=== PATIENT | female | born 1940 | race Caucasian/White ===

== ENCOUNTER 2017-10-21 11:34 | Outpatient (REF) | payer MEDICARE, BC, SELFPAY ==
[2017-10-21 13:46] LABS: ALT 18 U/L (12-78); AST 16 U/L (15-37); Albumin 3.6 g/dL (3.4-5.0); Alkaline Phosphatase 72 U/L (46-116); Anion Gap 7.7 mmol/L (3-11); BUN 21 mg/dL (7-18); Bilirubin, Total 0.7 mg/dL (0.2-1.0); CO2 27.3 mmol/L (21.0-32.0); CREATININE 1.15 mg/dL (0.55-1.02); Calcium 8.9 mg/dL (8.5-10.1); Chloride 101 mmol/L (98-107); Cholesterol 209 mg/dL (50-200); Estimated GFR 45.52 (mL/min/1.73m2); Glucose 86 mg/dL (70-100); HDL Cholesterol 70 mg/dL (40-60); LDL CHOLESTEROL 131 mg/dL (<100); Potassium 4.4 mmol/L (3.5-5.1); Sodium 136 mmol/L (136-145); Total Protein 6.9 g/dL (6.4-8.2); Triglyceride 54 mg/dL (30-150)
[2017-10-24 08:00] LABS: Vitamin D 25 Total 82.4 ng/ml (30-100)
== END 2017-10-21 11:54 ==
LOC: NCHCN 11:34
PROVIDERS: PCP Family Medicine; Visit Provider Family Medicine
DX: R42 Dizziness and giddiness (principal); E55.9 Vitamin D deficiency, unspecified; E78.5 Hyperlipidemia, unspecified
CPT/HCPCS: 80053; 80061; 82306; 83721

== ENCOUNTER 2018-01-27 17:06 | Outpatient (CLI) | payer MEDICARE, BC, SELFPAY ==
--- NOTE | 2018-01-27 09:04 | MERGE_ITS ---
*[facility]* *[facility]* [address] [place] [address] Date of study: 01/27/2018 Transthoracic Echocardiography M-mode, complete 2D, complete spectral Doppler, and color Doppler *STUDY CONCLUSIONS* Summary: 1. Left ventricle: The cavity size was normal. Wall thickness was normal. Systolic function was normal. The estimated ejection fraction was 55-60%. Wall motion was normal; there were no regional wall motion abnormalities. 2. Right ventricle: The cavity size was normal. Systolic function was normal. 3. Aortic valve: Trileaflet; mildly thickened leaflets. Valve mobility was restricted. Transvalvular velocity was increased. There was mild stenosis. There was mild to moderate regurgitation. Peak velocity (S): 2.1m/sec. VTI ratio of LVOT to aortic valve: 0.58. 4. Mitral valve: Mildly calcified annulus. Mildly thickened leaflets. There was mild regurgitation. 5. Inferior vena cava: The vessel was normal in size. The respirophasic diameter changes were in the normal range (greater than or equal to 50%), consistent with normal central venous pressure. *PATIENT PRESENTATION* Height: 160cm ((63in) ) S/D Pressure: 138 / 79 Weight: 60.3kg ((132.7lb) ) BSA: 1.65m^2 Test start time: 09:00 AM. Test stop time: 10:04 AM. PERFORMING Unknown ORDERING Josie Alexander REFERRING Josie Alexander PERFORMING [facility] EXPRESS CLERK Ana Pandya *PROCEDURE DATA* Procedure information: This study was interpreted by [facility]. Pertinent images and digital data are archived for permanent storage and are available for subsequent review. No prior study was available for comparison. Study status: Routine. Transthoracic echocardiography. M-mode, complete 2D, complete spectral Doppler, and color Doppler. A Transthoracic Echocardiogram was performed. Scanning was performed from the parasternal, apical, subcostal, and suprasternal notch acoustic windows. Images were obtained using an PlanZap 2000 cardiac ultrasound machine. Image quality was adequate. Study completion: The patient tolerated the procedure well. There were no complications. History: PMH: Takotsubo Cardiomyopathy. *CARDIAC ANATOMY* Left ventricle: The cavity size was normal. Wall thickness was normal. Systolic function was normal. The estimated ejection fraction was 55-60%. Wall motion was normal; there were no regional wall motion abnormalities. Findings consistent with diastolic dysfunction. There was no evidence of elevated ventricular filling pressure by Doppler parameters. Aortic valve: Trileaflet; mildly thickened leaflets. Valve mobility was restricted. Doppler: Transvalvular velocity was increased. There was mild stenosis. There was mild to moderate regurgitation. VTI ratio of LVOT to aortic valve: 0.58. Valve area (VTI): 1.4cm^2. Indexed valve area (VTI): 0.8cm^2/m^2. Peak velocity ratio of LVOT to aortic valve: 0.54. Valve area (Vmax): 1.3cm^2. Indexed valve area (Vmax): 0.8cm^2/m^2. Mean velocity ratio of LVOT to aortic valve: 0.62. Valve area (Vmean): 1.5cm^2. Indexed valve area (Vmean): 0.9cm^2/m^2. Mean gradient (S): 9.3mm Hg. Peak gradient (S): 17.2mm Hg. Aorta: Aortic root: The aortic root was normal in size. Ascending aorta: The ascending aorta was normal in size. Mitral valve: Mildly calcified annulus. Mildly thickened leaflets. Mobility was not restricted. Doppler: Transvalvular velocity was within the normal range. There was no evidence for stenosis. There was mild regurgitation. Valve area by pressure half-time: 2.7cm^2. Indexed valve area by pressure half-time: 1.6cm^2/m^2. Peak gradient (D): 2.9mm Hg. Left atrium: The atrium was normal in size. Right ventricle: The cavity size was normal. Systolic function was normal. Pulmonic valve: Poorly visualized. Doppler: Transvalvular velocity was within the normal range. There was no evidence for stenosis. There was no significant regurgitation. Tricuspid valve: Structurally normal valve. Doppler: Transvalvular velocity was within the normal range. There was no evidence for stenosis. There was mild regurgitation. Pulmonary artery: Poorly visualized. Pulmonary systolic pressure was within the normal range, in the range of 25mm Hg to 30mm Hg. Right atrium: The atrium was normal in size. Pericardium: There was no pericardial effusion. Systemic veins: Inferior vena cava: The vessel was normal in size. The respirophasic diameter changes were in the normal range (greater than or equal to 50%), consistent with normal central venous pressure. Measurements Left ventricle Value Reference LV ID, ED, PLAX 3.9 cm 3.5 - 6.0 LV ID, ES, PLAX 2.4 cm 2.1 - 4.0 LV PW thickness, ED, PLAX 0.8 cm LV end-diastolic volume, 1-p A2C 75 ml LV ejection fraction, 1-p A2C 62 % LV end-diastolic volume, 1-p A4C 57 ml LV ejection fraction, 1-p A4C 52 % LV e', lateral 0.059 m/sec LV E/e', lateral 15 LV e', medial 0.09 m/sec LV E/e', medial 10 LV e', average 0.074 m/sec LV E/e', average 12 Ventricular septum Value Reference IVS thickness, ED, PLAX 0.8 cm LVOT Value Reference LVOT ID, A-P 1.7 cm LVOT area 2.4 cm^2 LVOT peak velocity, S 1.13 m/sec LVOT mean velocity, S 0.89 m/sec LVOT VTI, S 26.8 cm LVOT peak gradient, S 5.1 mm Hg LVOT mean gradient, S 3.5 mm Hg Stroke volume (SV), LVOT DP 64 ml Stroke index (SV/bsa), LVOT DP 39 ml/m^2 Aortic valve Value Reference Aortic valve peak velocity, S 2.1 m/sec Aortic valve mean velocity, S 1.44 m/sec Aortic valve VTI, S 46.0 cm Aortic mean gradient, S 9.3 mm Hg Aortic peak gradient, S 17.2 mm Hg VTI ratio, LVOT/AV 0.58 Aortic valve area, VTI 1.4 cm^2 Velocity ratio, peak, LVOT/AV 0.54 Aortic valve area, peak velocity 1.3 cm^2 Velocity ratio, mean, LVOT/AV 0.62 Aortic valve area, mean velocity 1.5 cm^2 Aortic valve area/bsa, mean velocity 0.9 cm^2/m^2 Aortic regurg velocity, ED 4.57 m/sec Aortic regurg deceleration 273 cm/s^2 Aortic regurg pressure half-time 425 ms Aortic regurg gradient, ED 83.6 mm Hg Aorta Value Reference Aortic root ID, ED 2.9 cm Ascending aorta ID, A-P, S 3.3 cm Left atrium Value Reference LA ID, A-P, ES 3.4 cm LA ID/bsa, A-P 2.1 cm/m^2 <=2.2 LA area, ES, A4C 15.7 cm^2 8.8 - 23.4 LA area, ES, A2C 15 cm^2 LA volume/bsa, S 27 ml/m^2 LA volume, ES, 2-p 40 ml LA volume/bsa, ES, 2-p 24 ml/m^2 LA/aortic root ratio 1.17 Mitral valve Value Reference Mitral E-wave peak velocity 0.85 m/sec Mitral A-wave peak velocity 1.13 m/sec Mitral deceleration time (H) 280 ms 150 - 230 Mitral pressure half-time 81 ms Mitral peak gradient, D 2.9 mm Hg Mitral E/A ratio, peak 0.76 Mitral valve area, PHT, DP 2.7 cm^2 Tricuspid valve Value Reference Tricuspid regurg peak velocity 2.5 m/sec Tricuspid peak RV-RA gradient 25.1 mm Hg Right atrium Value Reference RA area, ES, A4C 12.8 cm^2 8.3 - 19.5 Legend: (L) and (H) elijah values outside specified reference range. I have personally reviewed the images and have reviewed and edited the reported findings. Electronically signed by Maite Mcgovern 01/28/2018 10:08
== END 2018-01-27 17:26 ==
PROVIDERS: PCP Family Medicine; Visit Provider Family Medicine
DX: I51.81 Takotsubo syndrome (principal); I35.2 Nonrheumatic aortic (valve) stenosis with insufficiency
CPT/HCPCS: 93306

== ENCOUNTER 2018-02-07 06:50 | Emergency (ER) | payer MEDICARE, BC, SELFPAY ==
[2018-02-07 06:57] VITALS: BP 131/78; PULSE 69; RESP 16; TEMP 37; O2SAT 96
--- NOTE | 2018-02-07 07:00 | DI.RAD_ITS ---
SYMPTOMS/DIAGNOSIS: PAIN ALL OVER RIGHT WRIST S/P FALL ON ICE RIGHT WRIST: Three views were obtained. There are mild degenerative changes of the carpus. No acute fracture is seen.
--- NOTE | 2018-02-07 07:01 | W.ED.GENAD ---
Discharge Plan Disposition Patient Disposition: HOME Condition: Good Discharge Details Chief Complaint: Orthopedic Clinical Impression: Acute wrist pain Primary Care Provider: Josie Alexander ED Provider: Quan Moreno Home Meds and New Rx's Prescriptions: No Action Tumeric 1 cap PO DAILY RF: 0 aspirin [Aspir-81] 81 MG tablet,delayed release (DR/EC) 81 mg DAILY PRN PRNRF: 0 oregano oil 1,500 MG capsule 1 cap PO DAILY RF: 0 L.acidoph, paracasei,B. lactis 1 EACH capsule 1 ea PO DAILY RF: 0 cholecalciferol (vitamin D3) 1,000 UNITS tablet 3,000 units PO DAILY RF: 0 Discharge Instructions Instructions: Wrist Injury (ED) Additional Instructions: Please take Tylenol and Motrin as needed for your pain. Please continue to ice regularly every 15-30 minutes. Please use the splint as directed. If you notice any worsening of your symptoms, or any new symptoms such as vomiting, diarrhea, fever, chills, shortness of breath, chest pain, numbness, weakness, or fainting , please return immediately to the emergency department for reevaluation. Please follow up with your primary care provider as soon as possible for reassessment and reevaluation. As always, it was a pleasure participating in your medical care today. Referrals: Josie Alexander [Primary Care Provider] - Medical Decision Making This is a pleasant 77-year-old female who presents for fall and pain in her right wrist. It is her dominant hand. It occurred yesterday, and has been unrelieved with ice. She has not taken any Tylenol or Motrin. There is mild amount of bruising, pain is notable on palpation of the wrist in all components around the wrist. No associated numbness or tingling. Good strength, good movement otherwise. We will get an x-ray to rule out any acute fracture. We will give Tylenol Motrin for control pain. 8 AM Review of x-ray shows no evidence of acute fracture process. Patient has been placed in a wrist splint. Her pain is well tolerated. I feel the patient be safely discharged home with close follow-up with her primary care provider. We discussed red flags which to return the patient understands I have extensively reviewed the treatment plan and discharge instructions with the patient. I have addressed all patient concerns at this time. The patient was made aware of what symptoms to monitor for that would warrant a return to the emergency department. Discussed the plan with the patient, they demonstrate verbal understanding and agreement with our assessment and plan at this time. HPI General Date/Time Provider Initiated Documentation: 02/07/18 07:00. HPI Narrative: This is a 77-year-old female with no significant past medical history who presents today for evaluation of right wrist pain. She is right-hand dominant she states that yesterday she was walking on ice, slipped on an outstretched wrist. She has been icing it but had no relief with this. Pain is located in all aspects of her wrist. It is the medial and lateral component. It is worse with movement. Improved by nothing. She denies any associated numbness tingling or weakness. She denies any significant pain in her forearm or her hand. She denies a recent surgeries, pertinent family history, IV or illicit drug use. No other modifying factors. She has no other complaints at this time Related Data Home Medications Medication Instructions Recorded Confirmed Tumeric 1 cap PO DAILY 11/05/13 02/07/18 aspirin [Aspir-81] 81 mg DAILY PRN PRN 08/11/15 02/07/18 L.acidoph, paracasei,B. lactis 1 ea PO DAILY 06/30/16 02/07/18 cholecalciferol (vitamin D3) 3,000 units PO DAILY 06/30/16 02/07/18 oregano oil 1 cap PO DAILY 06/30/16 02/07/18 Allergies Allergy/AdvReac Type Severity Reaction Status Date / Time No Known Allergies Allergy Unverified 02/07/18 07:01 Review of Systems Review of Systems All systems reviewed & are unremarkable except as noted in HPI and below PFSH Medical History degenerative disc disease Surgical History Extraction of cataract urethral scope Social History Smoking/Tobacco Use Status: Former Tobacco Use Exam Narrative Exam Narrative: 1.Const: Well-nourished, Well-developed, appearing stated age 2.Eyes: PERRL, no conjunctival injection, and symmetrical lids. 3.ENT: Atraumatic external nose and ears. Moist MM. Neck: Symmetric, trachea midline, No thyromegaly. 4.CVS: +S1/S2, No murmurs or gallops. Peripheral pulses 2+ and equal in all extremities. Brisk capillary refill in all extremities. 5.RESP: Unlabored respiratory effort. Clear to auscultation bilaterally. No wheezes rales or rhonchi 6.GI: Soft, Nontender/Nondistended, No hepatosplenomegaly. No guarding or rebound. 7.MSK: No gross deformities or discolorations or lesions. Tolerates full range of motion of extremities. All compartments of upper and lower extremities are soft with no tenderness. Vascular exam demonstrates brisk capillary refill and intact pulses in all extremities. Patient's right upper extremity demonstrates mild bruising around the wrist. Tenderness over the distal radius and ulna, minimal Tinel's over the medical snuffbox. Tenderness on palpation over all the carpals. Pain is worse with flexion extension of the wrist. She demonstrates good collar setter strength, normal movement of her fingers, good two-point discrimination of all fingers. Brisk capillary refill. No significant abnormality or tenderness in the elbow or proximal forearm. 8.Skin: Warm, Dry. No rashes or lesions. 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 Sensation grossly intact, no focal neurologic deficits. 10.Psych: (AAO) x3. Appropriate mood and affect
--- NOTE | 2018-02-07 07:05 | ED.GENADUL_ITS ---
Discharge Plan Disposition Patient Disposition: HOME Condition: Good Discharge Details Chief Complaint: Orthopedic Clinical Impression: Acute wrist pain Primary Care Provider: Josie Alexander ED Provider: Quan Moreno Home Meds and New Rx's Prescriptions: No Action Tumeric 1 cap PO DAILY RF: 0 aspirin [Aspir-81] 81 MG tablet,delayed release (DR/EC) 81 mg DAILY PRN PRNRF: 0 oregano oil 1,500 MG capsule 1 cap PO DAILY RF: 0 L.acidoph, paracasei,B. lactis 1 EACH capsule 1 ea PO DAILY RF: 0 cholecalciferol (vitamin D3) 1,000 UNITS tablet 3,000 units PO DAILY RF: 0 Discharge Instructions Instructions: Wrist Injury (ED) Additional Instructions: Please take Tylenol and Motrin as needed for your pain. Please continue to ice regularly every 15-30 minutes. Please use the splint as directed. If you n otice any worsening of your symptoms, or any new symptoms such as vomiting, diarrhea, fever, chills, shortness of breath, chest pain, numbness, weakness, or fainting , please return immediately to the emergency department for reevaluation. Please follow up with your primary care provider as soon as possible for reassessment and reevaluation. As always, it was a pleasure participating in your medical care today. Referrals: Josie Alexander [Primary Care Provider] - Medical Decision Making This is a pleasant 77-year-old female who presents for fall and pain in her right wrist. It is her dominant hand. It occurred yesterday, and has been unrelieved with ice. She has not taken any Tylenol or Motrin. There is mild amount of bruising, pain is notable on palpation of the wrist in all components around the wrist. No associated numbness or tingling. Good strength, good movement otherwise. We will get an x-ray to rule out any acute fracture. We will give Tylenol Motrin for control pain. 8 AM Review of x-ray shows no evidence of acute fracture process. Patient has been placed in a wrist splint. Her pain is well tolerated. I feel the patient be safely discharged home with close follow-up with her primary care provider. We discussed red flags which to return the patient understands I have extensively reviewed the treatment plan and discharge instructions with the patient. I have addressed all patient concerns at this time. The patient was made aware of what symptoms to monitor for that would warrant a return to the emergency department. Discussed the plan with the patient, they demonstrate verbal understanding and agreement with our assessment and plan at this time. HPI General Date/Time Provider Initiated Documentation: 02/07/18 07:00 . HPI Narrative: This is a 77-year-old female with no significant past medical history who presents today for evaluation of right wrist pain. She is right-hand dominant she states that yesterday she was walking on ice, slipped on an outstretched wrist. She has been icing it but had no relief with this. Pain is located in all aspects of her wrist. It is the medial and lateral component. It is worse with movement. Improved by nothing. She denies any associated numbness tingling or weakness. She denies any significant pain in her forearm or her hand. She denies a recent surgeries, pertinent family history, IV or illicit drug use. No other modifying factors. She has no other complaints at this time Related Data Home Medications Medication Instructions Recorded Confirmed Tumeric 1 cap PO DAILY 11/05/13 02/07/18 aspirin [Aspir-81] 81 mg DAILY PRN PRN 08/11/15 02/07/18 L.acidoph, paracasei,B. lactis 1 ea PO DAILY 06/30/16 02/07/18 cholecalciferol (vitamin D3) 3,000 units PO DAILY 06/30/16 02/07/18 oregano oil 1 cap PO DAILY 06/30/16 02/07/18 Allergies Allergy/AdvReac Type Severity Reaction Status Date / Time No Known Allergies Allergy Unverified 02/07/18 07:01 Review of Systems Review of Systems All systems reviewed & are unremarkable except as noted in HPI and below PFSH Medical History degenerative disc disease Surgical History Extraction of cataract urethral scope Social History Smoking/Tobacco Use Status: Former Tobacco Use Exam Narrative Exam Narrative: 1.Const: Well-nourished, Well-developed, appearing stated age 2.Eyes: PERRL, no conjunctival injection, and symmetrical lids. 3.ENT: Atraumatic external nose and ears. Moist MM. Neck: Symmetric, trachea midline, No thyromegaly. 4.CVS: +S1/S2, No murmurs or gallops. Peripheral pulses 2+ and equal in all extremities. Brisk capillary refill in all extremities. 5.RESP: Unlabored respiratory effort. Clear to auscultation bilaterally. No wheezes rales or rhonchi 6.GI: Soft, Nontender/Nondistended, No hepatosplenomegaly. No guarding or rebound. 7.MSK: No gross deformities or discolorations or lesions. Tolerates full range of motion of extremities. All compartments of upper and lower extremities are soft with no tenderness. Vascular exam demonstrates brisk capillary refill and intact pulses in all extremities. Patient's right upper extremity demonstrates mild bruising around the wrist. Tenderness over the distal radius and ulna, minimal Tinel's over the medical snuffbox. Tenderness on palpation over all the carpals. Pain is worse with flexion extension of the wrist. She demonstrates good financial intern strength, normal movement of her fingers, good two-point discrimination of all fingers. Brisk capillary refill. No significant abnormality or tenderness in the elbow or proximal forearm. 8.Skin: Warm, Dry. No rashes or lesions. 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 Sensation grossly intact, no focal neurologic deficits. 10.Psych: (AAO) x3. Appropriate mood and affect
[2018-02-07] MEDS: Ibuprofen 800 MG TAB PO (07:30)
[2018-02-07] MEDS: Acetaminophen 325 MG TAB (07:30)
--- NOTE | 2018-02-07 09:02 | DI.VRAD_ITS ---
EXAM: XR Right Wrist Complete, 3 or more Views EXAM DATE/TIME: 02/07/2018 7:01 AM CLINICAL HISTORY: 77 years old, female; Injury or trauma; Fall; Initial encounter; Blunt trauma (contusions or hematomas; Wrist; Right; Injury date: 02/06/2018; Injury details: Foosh on ice TECHNIQUE: XR Right wrist 3 or more views. COMPARISON: No relevant prior studies available. FINDINGS: Bones/joints: No acute fracture or dislocation is identified. The bones appear osteopenic. There is mild narrowing of the radiocarpal compartment, with mild osteophyte formation about it, between the scaphoid and trapezium, and at the first carpometacarpal joint. Soft tissues: There is mild swelling anteriorly and posteriorly. IMPRESSION: 1. Mild anterior and posterior soft tissue swelling without acute fracture or dislocation identified. May consider follow-up in 7 to 10 days or correlation with MRI if symptoms persist. 2. Apparent osteopenia. 3. Degenerative changes as described. Dictated and Authenticated by: Maxi Heaton MD. Ordering:MAIA Glass MD
== END 2018-02-07 11:06 | disposition home or self-care (01) ==
LOC: ER 09:16
PROVIDERS: Emergency Provider Emergency Medicine; PCP Family Medicine
DX: S69.91XA Unspecified injury of right wrist, hand and finger(s), initial encounter (principal); M79.89 Other specified soft tissue disorders; M25.531 Pain in right wrist; W19.XXXA Unspecified fall, initial encounter; M85.831 Other specified disorders of bone density and structure, right forearm
CPT/HCPCS: 99283; 73110; L3908

== ENCOUNTER 2018-07-14 01:17 | Outpatient (CLI) | payer MEDICARE, BC, SELFPAY ==
--- NOTE | 2018-07-14 12:31 | MERGE_ITS ---
*[facility]* *[facility]* [address] [place] [address] Date of study: 07/14/2018 Transthoracic Echocardiography M-mode, complete 2D, complete spectral Doppler, and color Doppler *STUDY CONCLUSIONS* Impressions: No significant chage to , no regional wall motion problems. Summary: 1. Left ventricle: The cavity size was normal. Wall thickness was normal. Systolic function was normal. The estimated ejection fraction was 60-65%. Wall motion was normal; there were no regional wall motion abnormalities. 2. Aortic valve: Valve mobility was mildly restricted. Transvalvular velocity was minimally increased. There was very mild stenosis. There was mild regurgitation. 3. Mitral valve: Mildly calcified annulus. Mildly thickened leaflets. Mild thickening. 4. Right ventricle: The cavity size was normal. Wall thickness was normal. Systolic function was normal. 5. Pulmonary arteries: PA peak pressure: 33mm Hg (S). *PATIENT PRESENTATION* Height: 160cm ((63in) ) S/D Pressure: 122 / 74 Weight: 63.5kg ((139.7lb) ) BSA: 1.69m^2 Test start time: 12:30 PM. Test stop time: 01:38 PM. PERFORMING Unknown ORDERING Josie Alexander REFERRING Josie Alexander PERFORMING [facility] DIRECTOR OF REGULATORY AFFAIRS Ana Pandya *PROCEDURE DATA* Procedure information: This study was interpreted by [facility]. Pertinent images and digital data are archived for permanent storage and are available for subsequent review. Comparison was made to the study of 01/27/2018. Study status: Routine. Transthoracic echocardiography. M-mode, complete 2D, complete spectral Doppler, and color Doppler. A Transthoracic Echocardiogram was performed. Scanning was performed from the parasternal, apical, subcostal, and suprasternal notch acoustic windows. Images were obtained using an [employer] SC 2000 cardiac ultrasound machine. Image quality was adequate. Study completion: The patient tolerated the procedure well. History: PMH: Takotsubo Cardiomyopathy. *CARDIAC ANATOMY* Left ventricle: The cavity size was normal. Wall thickness was normal. Systolic function was normal. The estimated ejection fraction was 60-65%. Wall motion was normal; there were no regional wall motion abnormalities. There was no evidence of elevated ventricular filling pressure by Doppler parameters. Aortic valve: Trileaflet; mildly thickened leaflets. Valve mobility was mildly restricted. Doppler: Transvalvular velocity was minimally increased. There was very mild stenosis. There was mild regurgitation. VTI ratio of LVOT to aortic valve: 0.63. Valve area (VTI): 1.5cm^2. Indexed valve area (VTI): 0.9cm^2/m^2. Peak velocity ratio of LVOT to aortic valve: 0.55. Valve area (Vmax): 1.3cm^2. Indexed valve area (Vmax): 0.8cm^2/m^2. Mean velocity ratio of LVOT to aortic valve: 0.65. Valve area (Vmean): 1.5cm^2. Indexed valve area (Vmean): 0.9cm^2/m^2. Mean gradient (S): 8.8mm Hg. Peak gradient (S): 15.8mm Hg. Aorta: Aortic root: The aortic root was normal in size. Ascending aorta: The ascending aorta was normal in size. Mitral valve: Mildly calcified annulus. Mildly thickened leaflets. Mild thickening. Mobility was not restricted. Doppler: Transvalvular velocity was within the normal range. There was no evidence for stenosis. There was trivial regurgitation. Valve area by pressure half-time: 2.7cm^2. Indexed valve area by pressure half-time: 1.6cm^2/m^2. Left atrium: The atrium was normal in size. Right ventricle: The cavity size was normal. Wall thickness was normal. Systolic function was normal. Pulmonic valve: Poorly visualized. Doppler: Transvalvular velocity was within the normal range. There was no evidence for stenosis. There was no significant regurgitation. Peak gradient (S): 2.5mm Hg. Tricuspid valve: Structurally normal valve. Doppler: Transvalvular velocity was within the normal range. There was no evidence for stenosis. There was mild regurgitation. Pulmonary artery: Poorly visualized. Pulmonary systolic pressure was at the upper limits of normal. Main pulmonary artery: The artery was not well visualized. Right atrium: The atrium was normal in size. Pericardium: There was no pericardial effusion. Systemic veins: Inferior vena cava: Poorly visualized. Measurements Left ventricle Value 01/27/2018 Reference LV ID, ED, PLAX 3.9 cm 3.9 3.5 - 6.0 LV ID, ES, PLAX 2.6 cm 2.4 2.1 - 4.0 LV PW thickness, ED, PLAX 0.8 cm 0.8 LV end-diastolic volume, 66 ml 75 1-p A2C LV ejection fraction, 1-p 55 % 62 A2C LV end-diastolic volume, 54 ml 57 1-p A4C LV ejection fraction, 1-p 53 % 52 A4C LV e', lateral 0.068 m/sec 0.059 LV E/e', lateral 10 15 LV e', medial 0.071 m/sec 0.09 LV E/e', medial 9 10 LV e', average 0.07 m/sec 0.074 LV E/e', average 10 12 Ventricular septum Value 01/27/2018 Reference IVS thickness, ED, PLAX 0.8 cm 0.8 LVOT Value 01/27/2018 Reference LVOT ID, A-P 1.7 cm 1.7 LVOT area 2.3 cm^2 2.4 LVOT peak velocity, S 1.1 m/sec 1.13 LVOT mean velocity, S 0.91 m/sec 0.89 LVOT VTI, S 28.2 cm 26.8 LVOT peak gradient, S 4.8 mm Hg 5.1 LVOT mean gradient, S 3.5 mm Hg 3.5 Stroke volume (SV), LVOT 65 ml 64 DP Stroke index (SV/bsa), 39 ml/m^2 39 LVOT DP Aortic valve Value 01/27/2018 Reference Aortic valve peak 2 m/sec 2.1 velocity, S Aortic valve mean 1.4 m/sec 1.44 velocity, S Aortic valve VTI, S 45.0 cm 46.0 Aortic mean gradient, S 8.8 mm Hg 9.3 Aortic peak gradient, S 15.8 mm Hg 17.2 VTI ratio, LVOT/AV 0.63 0.58 Aortic valve area, VTI 1.5 cm^2 1.4 Velocity ratio, peak, 0.55 0.54 LVOT/AV Aortic valve area, peak 1.3 cm^2 1.3 velocity Velocity ratio, mean, 0.65 0.62 LVOT/AV Aortic valve area, mean 1.5 cm^2 1.5 velocity Aortic valve area/bsa, 0.9 cm^2/m^2 0.9 mean velocity Aortic regurg deceleration 229 cm/s^2 273 Aortic regurg pressure 550 ms 425 half-time Aorta Value 01/27/2018 Reference Aortic root ID, ED 2.9 cm 2.9 Ascending aorta ID, A-P, S 3.1 cm 3.3 Left atrium Value 01/27/2018 Reference LA ID, A-P, ES 2.6 cm 3.4 LA ID/bsa, A-P 1.5 cm/m^2 2.1 <=2.2 LA area, ES, A4C 14.6 cm^2 15.7 8.8 - 23.4 LA area, ES, A2C 14 cm^2 15 LA volume/bsa, S 23 ml/m^2 27 LA volume, ES, 2-p 37 ml 40 LA volume/bsa, ES, 2-p 22 ml/m^2 24 LA/aortic root ratio 0.92 1.17 Mitral valve Value 01/27/2018 Reference Mitral E-wave peak 0.67 m/sec 0.85 velocity Mitral A-wave peak 1.09 m/sec 1.13 velocity Mitral deceleration time (H) 282 ms 280 150 - 230 Mitral pressure half-time 82 ms 81 Mitral E/A ratio, peak 0.61 0.76 Mitral valve area, PHT, DP 2.7 cm^2 2.7 Pulmonary arteries Value 01/27/2018 Reference PA pressure, S, DP (H) 33 mm Hg <=30 Tricuspid valve Value 01/27/2018 Reference Tricuspid regurg peak 2.5 m/sec 2.5 velocity Tricuspid peak RV-RA 25.1 mm Hg 25.1 gradient Right atrium Value 01/27/2018 Reference RA area, ES, A4C 12.4 cm^2 12.8 8.3 - 19.5 Systemic veins Value 01/27/2018 Reference Estimated CVP 10 mm Hg Right ventricle Value 01/27/2018 Reference RV pressure, S, DP (H) 35 mm Hg <=30 Pulmonic valve Value 01/27/2018 Reference Pulmonic peak gradient, S 2.5 mm Hg Legend: (L) and (H) elijah values outside specified reference range. I have personally reviewed the images and have reviewed and edited the reported findings. Electronically signed by Pino Garcia 07/14/2018 16:16
== END 2018-07-14 01:37 ==
PROVIDERS: PCP Family Medicine; Visit Provider Family Medicine
DX: I51.81 Takotsubo syndrome (principal); I35.2 Nonrheumatic aortic (valve) stenosis with insufficiency
CPT/HCPCS: 93306

== ENCOUNTER 2018-10-14 10:07 | Observation (INO) | payer MEDICARE, BC, SELFPAY ==
[2018-10-14] VITALS (20 sets, daily range): BP systolic 111–164; BP diastolic 54–87; PULSE 62–75; RESP 15–18; TEMP 36.3–37.3; O2SAT 94–98
--- NOTE | 2018-10-14 10:43 | ED.GENADUL_ITS ---
Discharge Plan Disposition Condition: Good Discharge Details Chief Complaint: Dizzy/Sync Admit Date/Time: 10/14/18 12:45 Admit Provider: Henry Wagner Attending Provider: Henry Wagner Primary Care Provider: Josie Alexander ED Provider: Parmjit Blanco Discharge Instructions Activity:: Activity as Tolerated Equipment/Supplies:: No Equipment Needed Diet:: As Tolerated Discharge Orders Discharge Orders: Discharge Order (Routine); Ordered 10/15/18 Ordered By: Lorena Knight Discharge Data Discharge Date/Time-TO BE ENTERED AT DEPARTURE: 10/14/18 13:34 Medical Decision Making 78-year-old female here with lightheadedness that started last night and has persisted this morning. Patient is mildly hypertensive. Patient does have diminished sensation to light touch left side of her body compared to right that was appreciated on physical exam but that the patient has not appreciated in the past. Screening ECG was reviewed and interpreted by me: Sinus rhythm 63 bpm, normal axis, no STEMI, nondiagnostic. Echocardiogram from 07/14/2018 interpretation reviewed: Impressions: No significant chage to , no regional wall motion problems. Summary: 1. Left ventricle: The cavity size was normal. Wall thickness was normal. Systolic function was normal. The estimated ejection fraction was 60-65%. Wall motion was normal; there were no regional wall motion abnormalities. 2. Aortic valve: Valve mobility was mildly restricted. Transvalvular velocity was minimally increased. There was very mild stenosis. There was mild regurgitation. 3. Mitral valve: Mildly calcified annulus. Mildly thickened leaflets. Mild thickening. 4. Right ventricle: The cavity size was normal. Wall thickness was normal. Systolic function was normal. 5. Pulmonary arteries: PA peak pressure: 33mm Hg (S). Orthostatics performed today were normal. Labs reviewed and nondiagnostic. Initial troponin negative. D-dimer negative. No leukocytosis. Electrolytes normal. Urinalysis normal. Chest x-ray was reviewed and interpreted by radiology: Stable COPD. There is pectus excavatum which can create the false appearance of right middle lobe pneumonia and/or cardiomegaly on the PA radiograph. CT of the head was interpreted by radiology: Interval appearance of low density in the right anterior basilar ganglia most consistent with chronic infarct. 1.3 cm subacute nonhemorrhagic infarct cannot be entirely ruled out. I spoke with the radiologist, no acute left-sided motor deficits suggest this is a small chronic lacunar infarct. Unclear etiology for symptoms at this point. Plan for continued observation on telemetry. I called and spoke with Dr. Wagner who will admit the patient. Bridging orders placed as requested. HPI General Mode of arrival: ambulatory . Date/Time Provider Initiated Documentation: 10/14/18 10:21 . Limitations to Documentation: no limitations . Information obtained by: patient . HPI Narrative: 78-year-old female with history of an STEMI in the past, here with chief complaint of lightheadedness. Patient notes that last night she was ambulating and suddenly felt lightheaded like she was going to fall. She does not describe room spinning vertigo at that time. She sat down which seemed to improve her symptoms. She went to bed, slept well and woke up this morning with recurrent lightheadedness. Symptoms have persisted this morning. Symptoms are mild to moderate. No modifiers. No associated palpitations. She has no associated headache. No chest pain or shortness of breath. No abdominal pain. No bright red blood per rectum or melena. No urinary symptoms. No focal weakness or numbness. Related Data Home Medications Medication Instructions Recorded Confirmed Tumeric 1 cap PO DAILY 11/05/13 10/14/18 oregano oil 1 cap PO DAILY 06/30/16 10/14/18 [place] Orotate 5 mg PO DAILY 10/14/18 10/14/18 ascorbic acid (vitamin C) [Vitamin 500 mg PO DAILY 10/14/18 10/14/18 C] aspirin 325 mg PO DAILY #30 tab 10/15/18 atorvastatin [Lipitor] 20 mg PO QPM #30 tab 10/15/18 meclizine 12.5 mg PO TID PRN PRN #30 tab 10/15/18 Previous Rx's Medication Instructions Recorded aspirin 325 mg PO DAILY #30 tab 10/15/18 atorvastatin [Lipitor] 20 mg PO QPM #30 tab 10/15/18 meclizine 12.5 mg PO TID PRN PRN #30 tab 10/15/18 Allergies Allergy/AdvReac Type Severity Reaction Status Date / Time No Known Allergies Allergy Unverified 10/14/18 12:58 General Stated Complaint: Dizzy/Sync SHIVAM: 3 Review of Systems Constitutional Denies fever(s), Denies headache(s) and Denies weakness Eyes Denies loss of vision ENT Denies vertigo, Reports dizziness and Denies headache(s) Cardiovascular Denies syncope Gastrointestinal Denies nausea and Denies vomiting Musculoskeletal Denies numbness Neurologic Denies vertigo, Reports dizziness, Denies syncope, Denies headache(s), Denies lack of coordination, Denies focal weakness, Denies loss of vision, Denies numbness, Denies sensory deficit, Denies paresthesias and Denies weakness PFSH Medical History degenerative disc disease Impacted cerumen of both ears (Acute) Surgical History Extraction of cataract urethral scope Social History Smoking/Tobacco Use Status: Former Tobacco Use Drug use: Never Do you feel safe in your relationship?: Yes Exam Const General: cooperative and no acute distress HENNY Head: normocephalic and atraumatic Mouth: moist mucous membranes Eyes Conjunctivae: normal conjunctivae Sclera: normal sclerae EOM: EOM intact bilaterally Neck Neck: trachea midline and supple Resp Auscultation: clear to auscultation bilaterally, no rales, no rhonchi and no wheezes Cardio Jugular venous pressure: no JVD Rate: regular rate and not tachycardic Rhythm: regular rhythm Heart Sounds: murmur systolic II/ GI Palpation: soft, not firm, no guarding, no masses, not rigid and nontender Skin General skin exam: no rashes or lesions noted Neuro General: alert, awake, oriented x3, tone normal, no focal motor deficits and CN's II-XI intact bilaterally Cranial Nerves: PERRL Cognition: normal cognition Speech: speech normal Motor: strength 5/5 throughout Sensory Exam: other (Diminished sensation, mild to light touch lt leg, arm and face compared rt) Extrem General: no calf tenderness and no edema Psych Appearance: grossly normal Mental Status: mental status grossly normal Speech and Movement: speech and movement normal Course Vital Signs Temperature 36.3 C L 10/14/18 10:19 Pulse 62 10/14/18 10:19 Respiratory Rate 16 10/14/18 10:19 Blood Pressure 164/87 H 10/14/18 10:19 Pulse Oximetry 97 10/14/18 10:19 Temperature 36.3 C L 10/14/18 10:19 Temperature Source Temporal Artery Scan 10/14/18 10:19 Pulse 62 10/14/18 10:19 Respiratory Rate 16 10/14/18 10:19 Blood Pressure 164/87 H 10/14/18 10:19 Blood Pressure Position Sitting 10/14/18 10:19 Pulse Oximetry 97 10/14/18 10:19 Oxygen Delivery Method Room Air 10/14/18 10:19 Oxygen Flow Rate 0 10/14/18 10:19 Pain Level 0 10/14/18 10:19
[2018-10-14 10:45] LABS: Abs Immature Grans 0.01 k/cumm (0.0-0.09); Absolute Basophil Count 0.03 k/cumm (0.0-0.2); Absolute Eosinophil Count 0.07 k/cumm (0.0-0.7); Absolute Lymphocyte Count 1.13 k/cumm (1.2-3.4); Absolute Monocyte Count 0.36 k/cumm (0.11-0.7); Absolute Neutrophil Count 4.51 k/cumm (1.2-6.7); Basophils % 0.5; Eosinophils % 1.1; HCT 46.6 % (36.0-46.0); HGB 15.3 g/dL (12.0-15.5); Immature Grans % 0.2; Lymphocytes % 18.5; Mean Corp. HGB Concentration 32.8 g/dL (32.0-36.0); Mean Corpuscular Hemoglobin 30.3 pg (27.0-33.0); Mean Corpuscular Volume 92.3 fL (80-95); Mean Platelet Volume 10.1 fL (8.0-11.0); Monocytes % 5.9; Neutrophils % 73.8; Platelet Count 262 x1000/uL (130-400); RBC 5.05 m/cumm (4.00-5.20); RBC Distribution Width 13.8 % (11.7-14.6); White Blood Cell Count 6.11 k/cumm (4.4-10.8)
[2018-10-14 10:59] LABS: PTT Activated 24.3 sec (21.0-31.4)
--- NOTE | 2018-10-14 11:02 | DI.CT_ITS ---
SYMPTOMS/DIAGNOSIS: LIGHTHEADED, DECREASED SENSATION ON LEFT, LEFT-SIDED WEAKNESS, ? CEREBROVASCULAR ACCIDENT NONCONTRAST HEAD CT: Comparison is made with October,. There is mild atrophy. There are mild patchy areas of low attenuation in the white matter consistent with small vessel disease. No acute infarct, hemorrhage or mass is seen. The ventricles are normal in size. There is no evidence of skull fracture or sinus opacification. IMPRESSION: No acute abnormality. CT ANGIOGRAPHY OF THE HEAD AND NECK: CT angiography was performed with multi slice acquisition and multi planar and 3D reconstruction. The common, internal, external carotid arteries, as well as vertebral arteries, show no evidence of occlusion, significant stenosis or dissection. No occlusion, aneurysm or significant stenosis is seen in the intracranial vessels. No abnormal enhancing lesions are noted in the brain. The parotid, submandibular and thyroid glands appear normal. No pneumothorax or infiltrates are seen at the lung apices. The ascending aorta diameter is 3.8 cm. Degenerative changes are seen in the cervical spine. IMPRESSION: No evidence of significant vascular stenosis, dissection or occlusion.
[2018-10-14 11:03] LABS: ALT 24 U/L (14-59); AST 18 U/L (15-37); Alkaline Phosphatase 69 U/L (46-116); Anion Gap 7.1 mmol/L (3-11); BUN 17 mg/dL (7-18); Bilirubin, Total 0.4 mg/dL (0.2-1.0); CO2 29.9 mmol/L (21.0-32.0); CREATININE 0.84 mg/dL (0.55-1.02); Chloride 103 mmol/L (98-107); Glucose 88 mg/dL (70-100); Magnesium 2.2 mg/dL (1.8-2.4); Potassium 4.2 mmol/L (3.5-5.1); Sodium 140 mmol/L (136-145); Total Protein 7.6 g/dL (6.4-8.2)
--- NOTE | 2018-10-14 11:14 | NUR.NOTE ---
Nursing Note: pt transported to CT on stretcher.
--- NOTE | 2018-10-14 11:20 | DI.RAD_ITS ---
SYMPTOMS/DIAGNOSIS: DIZZY PA AND LATERAL CHEST: Comparison is made with October,. The heart size is within normal limits. Scoliosis is noted. There is mild apical scarring. The lungs are otherwise clear. A pectus excavatum deformity is seen. IMPRESSION: No acute abnormality.
[2018-10-14 11:37] LABS: Troponin I < 0.05 ng/mL (0.00-0.06)
[2018-10-14 11:41] LABS: D-Dimer 344 ng/mlFEU (<500)
[2018-10-14 11:45] LABS: Bilirubin Negative (Negative); Blood Negative (Negative); Clarity Clear (Clear); Glucose Negative (Negative); Ketones Negative (Negative); Leukocyte Esterase Negative (Negative); Nitrite Negative (Negative); Urobilinogen 0.2 EU/dL (Up TO 0.2)
--- NOTE | 2018-10-14 12:04 | DI.VRAD_ITS ---
Addendum created by Maxi Morales MD on 10/14/2018 12:13:37 PM EDT History: No acute left-sided motor deficits suggesting this is a small chronic lacunar infarct. THIS REPORT CONTAINS FINDINGS THAT MAY BE CRITICAL TO PATIENT CARE. The findings were verbally communicated via telephone conference with TOI CHRISTINE at 12:13 PM EDT on 10/14/2018. The findings were acknowledged and understood. Initial report created on 10/14/2018 12:03:54 PM EDT EXAM: CT Head Without Contrast EXAM DATE/TIME: 10/14/2018 11:03 AM CLINICAL HISTORY: 78 years old, female; Other: Lightheaded, decreased sensation left TECHNIQUE: Imaging protocol: Computed tomography of the head without contrast. Radiation optimization: All CT scans at this facility use at least one of these dose optimization techniques: automated exposure control; mA and/or kV adjustment per patient size (includes targeted exams where dose is matched to clinical indication); or iterative reconstruction. COMPARISON: CT HEAD WITHOUT CONTRAST 11/05/2013 11:09 AM FINDINGS: Brain: Mild cerebral atrophy and ischemic leukoencephalopathy. Interval appearance of low density in the right anterior basal ganglia most consistent with chronic infarct. 1.3 cm subacute nonhemorrhagic infarct cannot be entirely ruled out. Ventricles: Normal. No ventriculomegaly. Bones/joints: Unremarkable. No acute fracture. Sinuses: Visualized sinuses are unremarkable. No fluid levels. Mastoid air cells: Visualized mastoid air cells are well aerated. Soft tissues: Unremarkable. Vasculature: Severe calcified intracranial atherosclerotic vessel disease. IMPRESSION: Interval appearance of low density in the right anterior basal ganglia most consistent with chronic infarct. 1.3 cm subacute nonhemorrhagic infarct cannot be entirely ruled out. Dictated and Authenticated by: Maxi Morales MD. Ordering:SHIRLEY Parnell MD
--- NOTE | 2018-10-14 12:05 | DI.VRAD_ITS ---
EXAM: XR Chest, 2 Views EXAM DATE/TIME: 10/14/2018 11:21 AM CLINICAL HISTORY: 78 years old, female; Other: Dizzy TECHNIQUE: Imaging protocol: XR of the chest, 2 views. COMPARISON: CR CHEST 2 VIEWS PA,LAT 11/05/2013 11:16 AM FINDINGS: Lungs: Stable COPD . Pleural space: Unremarkable. No pleural effusion. No pneumothorax. Heart/Mediastinum: There is pectus excavatum which can create the false appearence of RML pneumonia and/or cardiomegaly on the PA radiograph. Bones/joints: Dextroscoliosis. IMPRESSION: 1. Stable COPD . 2. There is pectus excavatum which can create the false appearence of RML pneumonia and/or cardiomegaly on the PA radiograph. Dictated and Authenticated by: Maxi Morales MD. Ordering:SHIRLEY Parnell MD
--- NOTE | 2018-10-14 13:30 | NUR.NOTE ---
Nursing Note: report given to Mary JACOBS
--- NOTE | 2018-10-14 13:34 | NUR.NOTE ---
Nursing Note: call out to pharmacy to verify aspirin
[2018-10-14] MEDS: Omnipaque 350 MG/ML 100 ML BTL IJ (13:45)
[2018-10-14] MEDS: Normal Saline Flush 10 ML SYR IVP (13:46)
--- NOTE | 2018-10-14 14:10 | DI.VRAD_ITS ---
EXAM: CT Angiography Head With Contrast EXAM DATE/TIME: 10/14/2018 1:19 PM CLINICAL HISTORY: 78 years old, female; Patient HX: Left sided weakness, R/O CVA TECHNIQUE: Imaging protocol: Computed tomography angiography of the head with intravenous contrast. 3D rendering: MIP reconstructed images were created and reviewed. Radiation optimization: All CT scans at this facility use at least one of these dose optimization techniques: automated exposure control; mA and/or kV adjustment per patient size (includes targeted exams where dose is matched to clinical indication); or iterative reconstruction. Contrast material: OMNIPAQUE 350; Contrast volume: 85 ml; Contrast route: IV; COMPARISON: CT HEAD WO 10/14/2018 11:18 AM FINDINGS: Right internal carotid artery: Unremarkable. Intracranial segment is patent with no significant stenosis. No aneurysm. Right anterior cerebral artery: Unremarkable. No occlusion or significant stenosis. No aneurysm. Right middle cerebral artery: Unremarkable. No occlusion or significant stenosis. No aneurysm. Right posterior cerebral artery: Right posterior communicating artery. Right vertebral artery: Dominant right vertebral artery with patent left vertebral artery. Left internal carotid artery: Unremarkable. Intracranial segment is patent with no significant stenosis. No aneurysm. Left anterior cerebral artery: Unremarkable. No occlusion or significant stenosis. No aneurysm. Left middle cerebral artery: Unremarkable. No occlusion or significant stenosis. No aneurysm. Left posterior cerebral artery: Direct origin of the left posterior cerebral artery from the anterior circulation. The left cervical and intracranial ICA is larger than the right because the left ICA supplies the left posterior cerebral artery. Normal variant. Left vertebral artery: Unremarkable. No occlusion or significant stenosis. No aneurysm. Basilar artery: Unremarkable. No occlusion or significant stenosis. No aneurysm. Other vasculature: Venous contamination at the level of the [place]. Patent anterior communicating artery. No large vessel occlusion. IMPRESSION: No large vessel occlusion. EXAM: CT Angiography Neck With Contrast EXAM DATE/TIME: 10/14/2018 1:19 PM CLINICAL HISTORY: 78 years old, female; Patient HX: Left sided weakness, R/O CVA TECHNIQUE: Imaging protocol: Computed tomographic angiography images of the neck with intravenous contrast using CT angiography protocol. 3D rendering: MIP reconstructed images were created and reviewed. Radiation optimization: All CT scans at this facility use at least one of these dose optimization techniques: automated exposure control; mA and/or kV adjustment per patient size (includes targeted exams where dose is matched to clinical indication); or iterative reconstruction. COMPARISON: CT HEAD WO 10/14/2018 11:18 AM FINDINGS: VASCULATURE: Right common carotid artery: Unremarkable. No stenosis. No dissection or occlusion. Right internal carotid artery: Calcified plaque in the proximal right ICA. No ICA stenosis by NASCET/SRU criteria. Right external carotid artery: Unremarkable. No occlusion or stenosis of the origin. Right vertebral artery: Codominant vertebral arteries. Left common carotid artery: Normal variant common origin of the left common carotid artery and innominate artery consistent with bovine arch. Left internal carotid artery: Tortuous left ICA. Left carotid bifurcation calcified plaque. Left external carotid artery: Unremarkable. No occlusion or stenosis of the origin. Left vertebral artery: Unremarkable. No stenosis. No dissection or occlusion. Aorta: Calcification of the thoracic aorta and/or great vessels consistent with atherosclerotic vessel disease. Other vasculature: Examination is limited secondary to motion artifact. NECK: Bones/joints: Moderate to severe multilevel spine degenerative changes including degenerative disc disease, spondylosis and facet degenerative changes. Soft tissues: Normal. No significant soft tissue swelling. Dental: Examination is limited secondary to metallic artifact from dental fillings and/or dental hardware. IMPRESSION: 1. Codominant vertebral arteries. 2. No ICA stenosis by NASCET/SRU criteria. COMMENT: Reference per NASCET criteria for degree of stenosis: Mild: less than 50% stenosis. Moderate: 50-69% stenosis. Severe: 70-94% stenosis. Near occlusion: 95-99% stenosis. Dictated and Authenticated by: Maxi Morales MD. Ordering:NORMA Carrillo MD
--- NOTE | 2018-10-14 14:48 | W.PM.HP.N ---
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 Last well time was prior to bed last night. CT revealing for old infarct with possible 1.3 cm new infarct. Unable to obtain MRI or imaging beyond CTA due to holiday weekend. Neurology unavailable. Started on telemetry, atorvastatin, Asa 325 mg. Will monitor overnight CTA was normal and echo unnecessary at this time due to recent echo june 2018. EF 60-65%. Continue to monitor check lipid panel and A1c in the am. (2) DVT prophylaxis: Start date: 10/14/18 Start time: 15:21 Current visit: Yes Status: Acute TEDS and SCDs at this time. History of Present Illness Chief Complaint: CVA vs TIA Narrative: 78 y.o relatively healthy female with PMH of CVA unknown to her reports to [facility] ED today with symptoms described as lightheadedness. She states she woke up in the middle of the night to use the bathroom and felt lightheaded falling to her knees. Her then helped her up and moved her back to bed, she fell back asleep and woke up this morning with still feeling lightheaded bringing her to the emergency department. In the emergency department labs were in significant.No electrolyte abnormalities, wbc normal. A CT of the head was obtained revealing low density in the right anterior basal consistent with chronic infarct with a 1.3 geriatric care manager subacute nonhemorrhagic infarct that can not be ruled out. She is admitted to M/S with telemetry for observation for r/o TIA vs CVA. Due to lack of availability of MRI imaging on a weekend holiday we are unable to obtain MRI, u/s of carotids and u/s of lower extremities. CTA of head and neck were normal. She's c/o lightheadedness at this time, there is some nystagmus laterally, meclizine was ordered. Aspirin 325 mg was started, lipid panel and A1c for am with repeat cbc and bmp. Neurology is unavailable at this time. She will be monitored over night with possible discharge tomorrow on Asa and a statin, with follow up for outpatient neurology, MRI recent echo 07/14/2018 with EF of 60-65% aortic mildly restricted valve, ere was very mild stenosis. There was mild regurgitation. Mitral valve: Mildly calcified annulus. Mildly thickened leaflets. Mild thickening. Right ventricle: The cavity size was normal. Wall thickness was normal. Systolic function was normal. Pulmonary arteries: PA peak pressure: 33mm. Given recent echo I am not convinced she needs another one at this time. She denies chest pain, shortness of breath, nausea, vomiting, diarrhea. Review of Systems Review of Systems All systems reviewed & are unremarkable except as noted in HPI and below Constitutional Reports system reviewed and no additional complaints, except as docu Eyes Reports as per HPI ENT Reports system reviewed and no additional complaints, except as docu Cardiovascular Reports system reviewed and no additional complaints, except as docu Respiratory Reports system reviewed and no additional complaints, except as docu Gastrointestinal Reports system reviewed and no additional complaints, except as docu Genitourinary Reports system reviewed and no additional complaints, except as docu Musculoskeletal Reports system reviewed and no additional complaints, except as docu Integumentary/Breasts Reports system reviewed and no additional complaints, except as docu Neurologic Reports as per HPI Psychiatric Reports system reviewed and no additional complaints, except as docu Endocrine Reports system reviewed and no additional complaints, except as docu Hematologic/Lymphatic Reports system reviewed and no additional complaints, except as docu Allergic/Immunologic Reports system reviewed and no additional complaints, except as docu PFSH Medical History degenerative disc disease Impacted cerumen of both ears (Acute) Surgical History Extraction of cataract urethral scope Social History Smoking/Tobacco Use Status: Former Tobacco Use Drug use: Never Do you feel safe in your relationship?: Yes Meds Home Medications Medication Instructions Recorded Confirmed Type Tumeric 1 cap PO DAILY 11/05/13 10/14/18 History oregano oil 1 cap PO DAILY 06/30/16 10/14/18 History [employer] Orotate 5 mg PO DAILY 10/14/18 10/14/18 History ascorbic acid (vitamin C) [Vitamin 500 mg PO DAILY 08/31/19 08/31/19 History C] Allergies Allergy/AdvReac Type Severity Reaction Status Date / Time No Known Allergies Allergy Unverified 10/14/18 12:58 Exam Const General: cooperative, healthy appearing, comfortable and no acute distress Nutritional Appearance: average body habitus Orientation: alert, awake and oriented x3 HENMT Head: normal to inspection Face and sinus: normal facial exam Eyes General: appearance normal, both eyes and all related structures Alignment and Position: alignment normal Conjunctivae: conjunctivae normal Sclera: sclerae normal Pupils: PERRL EOM: EOM abnormal and nystagmus Neck Neck: normal visual inspection Lymphatic: no lymphadenopathy noted and no lymphedema noted Chest Chest: normal inspection of the chest Resp Effort & Inspection: normal respiratory effort and able to speak in complete sentences Auscultation: clear to auscultation bilaterally Cardio Jugular venous pressure: no JVD Palpation: normal PMI Rate: regular rate Rhythm: regular rhythm Heart Sounds: S1 normal and S2 normal GI Inspection: normal to inspection Palpation: soft and no hepatosplenomegaly Auscultation: normal bowel sounds General: deferred Back/Spine/Pelvis Back: no CVA tenderness Thoracic/Lumbar Spine: thoracic and lumbar spine normal to inspection Skin General skin exam: no rashes or lesions noted Neuro General: alert, awake, oriented x3, moves all extremities and abnormal to light touch, pain or propio. (right has greater sensation then left to all extremities) Cranial Nerves: able to elevate shoulders bilaterally and nystagmus Cognition: normal cognition Speech: speech normal Motor: tone not normal throughout and strength abnormal Extrem General: normal to inspection and full ROM Right upper extremity: normal to inspection Left upper extremity: normal to inspection Right lower extremity: normal to inspection Left lower extremity: normal to inspection Other: Right side weaker than left when pushing against gravity Psych Appearance: grossly normal Attitude: cooperative Thought Process: normal Results Labs : 10/14/18 10:39 10/14/18 10:39 Laboratory Results - last 24 hr 10/14/18 10/14/18 10/14/18 10:31 10:39 10:39 WBC 6.11 RBC 5.05 Hgb 15.3 Hct 46.6 H MCV 92.3 MCH 30.3 MCHC 32.8 RDW 13.8 Plt Count 262 MPV 10.1 Immature Gran % 0.2 Neutrophils % 73.8 Lymphocytes % 18.5 Monocytes % 5.9 Eosinophils % 1.1 Basophils % 0.5 Absolute Neutrophils 4.51 Absolute Lymphocytes 1.13 L Absolute Monocytes 0.36 Absolute Eosinophils 0.07 Absolute Basophils 0.03 APTT 24.3 D-Dimer Sodium 140 Potassium 4.2 Chloride 103 Carbon Dioxide 29.9 Anion Gap 7.1 BUN 17 Creatinine 0.84 Estimated GFR/1.73 m2 >= 60.00 Glucose 88 Hemoglobin A1c Calcium 9.0 Magnesium 2.2 Total Bilirubin 0.4 AST 18 ALT 24 Alkaline Phosphatase 69 Troponin I < 0.05 Total Protein 7.6 Albumin 4.0 Urine Color Urine Clarity Urine pH Ur Specific [place] Urine Protein Urine Ketones Urine Blood Urine Nitrite Urine Bilirubin Urine Urobilinogen Ur Leukocyte Esterase Urine Glucose 10/14/18 10/14/18 10/14/18 10:39 11:30 13:32 WBC RBC Hgb Hct MCV MCH MCHC RDW Plt Count MPV Immature Gran % Neutrophils % Lymphocytes % Monocytes % Eosinophils % Basophils % Absolute Neutrophils Absolute Lymphocytes Absolute Monocytes Absolute Eosinophils Absolute Basophils APTT D-Dimer 344 Sodium Potassium Chloride Carbon Dioxide Anion Gap BUN Creatinine Estimated GFR/1.73 m2 Glucose Hemoglobin A1c Cancelled Calcium Magnesium Total Bilirubin AST ALT Alkaline Phosphatase Troponin I Total Protein Albumin Urine Color Yellow Urine Clarity Clear Urine pH 7.0 Ur Specific [place] 1.010 Urine Protein Negative Urine Ketones Negative Urine Blood Negative Urine Nitrite Negative Urine Bilirubin Negative Urine Urobilinogen 0.2 Ur Leukocyte Esterase Negative Urine Glucose Negative Last Vital Signs Temp 36.3 C L 10/14/18 10:19 Pulse 65 10/14/18 14:14 Resp 16 10/14/18 12:22 BP 134/65 10/14/18 13:16 Pulse Ox 97 10/14/18 13:16
[2018-10-14] MEDS: Aspirin 325 MG TAB PO (14:52)
[2018-10-14] MEDS: Normal Saline 1,000 ML 100 ML IV (14:52)
[2018-10-14] MEDS: Meclizine 12.5 MG TAB PO ×2 (16:41→22:44)
[2018-10-14] MEDS: Atorvastatin 20 MG TAB PO (20:06)
[2018-10-15] MEDS: Normal Saline 1,000 ML 100 ML IV (00:35)
[2018-10-15 01:24] VITALS: BP 111/74; PULSE 70; O2SAT 96
[2018-10-15 07:05] LABS: HCT 40.9 % (36.0-46.0); HGB 13.5 g/dL (12.0-15.5); Mean Corpuscular Hemoglobin 30.5 pg (27.0-33.0); Mean Corpuscular Volume 92.5 fL (80-95); Mean Platelet Volume 10.5 fL (8.0-11.0); Platelet Count 240 x1000/uL (130-400); RBC 4.42 m/cumm (4.00-5.20); RBC Distribution Width 13.7 % (11.7-14.6); White Blood Cell Count 3.67 k/cumm (4.4-10.8)
[2018-10-15 07:13] VITALS: PULSE 60
[2018-10-15 07:21] LABS: Anion Gap 8.7 mmol/L (3-11); BUN 20 mg/dL (7-18); CO2 25.3 mmol/L (21.0-32.0); Calcium 8.2 mg/dL (8.5-10.1); Chloride 110 mmol/L (98-107); Glucose 89 mg/dL (70-100); Potassium 3.8 mmol/L (3.5-5.1); Sodium 144 mmol/L (136-145)
[2018-10-15 07:24] LABS: Calculated LDL 122 mg/dL; Cholesterol 191 mg/dL (50-200); HDL Cholesterol 61 mg/dL (40-60); Triglyceride 40 mg/dL (30-150)
[2018-10-15 07:40] LABS: Hemoglobin A1C 5.5 % (4.5-6.2)
[2018-10-15] MEDS: Aspirin 325 MG TAB PO (08:23)
[2018-10-15] MEDS: Ascorbic Acid 500 MG TAB PO (08:23)
[2018-10-15 08:37] VITALS: BP 137/79; PULSE 66; RESP 18; TEMP 36.1; O2SAT 96
--- NOTE | 2018-10-15 09:51 | IN_ITS ---
Date of service: 10/15/18 Time of Service: 09:25 PT Notes Inpatient Physical Therapy Evaluation Date: October 15, 2018 Referring Doctor: Lorena Knight PT Orders: PT CONSULT: Evaluate and treat Precautions: none Patient Profile/Admitting Diagnosis: Patient is an 78-year-old female admitted to an [facility] yesterday secondary to lightheadedness. She was kept overnight for monitoring purposes for questionable CVA versus TIA. No formal diagnostic such as MRI completed secondary to holiday weekend. She says that they will be scheduling an MRI later this week. PMHX: degenerative disc disease Impacted cerumen of both ears (Acute) Surgical History Extraction of cataract urethral scope Social History/Home Situation: Retired. With her in a single level dwelling. 2 stairs with railing on the porch accessing the house. Current Functional Limitations: None Equipment Owned/DME: None Subjective: Patient reports she is feeling much better compared to yesterday. She has episodes of lightheadedness which her doctor told her could be orthostatic hypotension. She felt this was a little different and lasted longer which prompted her come into the hospital. Patient states that she is ready to go home. Is feeling fine. Mild low back pain but this is chronic. Denies any lightheadedness. Objective: General Observation: Patient sitting in hospital recliner reading a book. She has IV in her left upper extremity and is on telemetry. Mental Status: Alert and orientated times 3 Pain: Mild low back pain high ROM: Right Upper Extremity: WFL Left Upper Extremity: WFL Right Lower Extremity: WFL Left Lower Extremity: WFL Strength: Right Upper Extremity: Grossly 4/5 throughout upper extremity glenohumeral joint flexion, abduction, bicep and tricep. 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 Left Upper Extremity: Glenohumeral joint flexion and abduction 4-/5, bicep tricep 4/5. 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 Right Lower Extremity: Grossly 4/5 hip flexion, seated hip abduction, quads and hamstrings. Is able to assume a bilateral heel raise position. Left Lower Extremity: Grossly 4/5 hip flexion, seated hip abduction, quads and hamstrings. Sensation: Intact to light touch throughout bilateral lower extremities Bed Mobility/Transfers: Sit to stand independent Stand to sit independent Gait: Patient ambulates 250 feet with supervision with no assistive device. Balance: Static Sitting: good Dynamic Sitting: good Static Standing: good Dynamic Standing: good (-) [place] Special Tests: Mobility Limitations Standardized Measure [facility] AM-PAC 6 clicks Basic Mobility Inpatient Short Form: Raw Score: 24 Standardized Score: 61.14 CMS Score: 0% CMS Modifier: CH Informed Consent/Education: Patient instructed in purpose of PT consult and plan of care. Assessment: Patient is a 78 year old female referred to physical therapy services with the diagnosis of questionable TIA. Patient is independent with all functional mobility and ambulation and is safe to go home. She does not require formal PT. Patient is not in any need of assistive device. Patient is assessed as a x Low 53135 [] Moderate 77916 [] High [id number] complexity based on the following: History: see above Examination: see above Presentation: stable Decision Making: low Plan of Care/Treatment Plan: Patient did not need of formal physical therapy. She is scheduled to be discharged from the hospital later today. Based on today's evaluation she is safe with functional mobility, gait, transfers etc. DISCHARGE RECOMMENDATIONS: Home TREATMENT CODE/TIME: 9:25 25 minutes. [id number]
[2018-10-15 09:57] VITALS: PULSE 65
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
[2018-10-15 11:48] VITALS: BP 107/65; PULSE 65; RESP 17; TEMP 36.3; O2SAT 95
== END 2018-10-15 12:58 | disposition home or self-care (01) ==
LOC: ER 13:14 → MS 14:04
PROVIDERS: Nurse Practitioner Family; Admitting Provider Internal Medicine; Emergency Provider Student in an Organized Health Care Education/Training Program; PCP Family Medicine; Visit Provider Internal Medicine
DX: R42 Dizziness and giddiness (principal); Z86.73 Personal history of transient ischemic attack (TIA), and cerebral infarction without residual deficits; R93.0 Abnormal findings on diagnostic imaging of skull and head, not elsewhere classified; W19.XXXA Unspecified fall, initial encounter
CPT/HCPCS: 36415; 70496; 70498; 80048; 80053; 80061; 85027; 93005; 97161; 99223; 99239; 99285; 70450; 71046; 81003; 83036; 83735; 84484; 85025; 85379; 85730; 93010; 93225; 99217; 99220; G0378; J3490

== ENCOUNTER 2018-10-18 09:27 | Outpatient (CLI) | payer MEDICARE, BC, SELFPAY ==
--- NOTE | 2018-10-19 06:34 | HOLTER_ITS ---
HOLTER MONITOR DATE OF DICTATION October 18, [address] 12 hours. Baseline rhythm sinus. Rare single PAC. 2 bursts SVT, longest 5-beat duration, fastest 181 beats per minute. No atrial fibrillation. No ventricular ectopy. No bradycardia. Average heart rate 78 beats per minute, range 59-106 beats per minute. Maxi Donovan M.D. [facility]/romeo T - 10/19/2018
== END 2018-10-18 09:47 ==
PROVIDERS: PCP Family Medicine; Visit Provider Nurse Practitioner Family
DX: I47.1 Supraventricular tachycardia (principal); I63.9 Cerebral infarction, unspecified
CPT/HCPCS: 93227; 93226

== ENCOUNTER 2018-10-19 09:20 | Outpatient (REF) | payer MEDICARE, BC, SELFPAY ==
[2018-10-19 12:51] LABS: HCT 44.6 % (36.0-46.0); HGB 14.9 g/dL (12.0-15.5); Mean Corp. HGB Concentration 33.4 g/dL (32.0-36.0); Mean Corpuscular Hemoglobin 30.9 pg (27.0-33.0); Mean Corpuscular Volume 92.5 fL (80-95); Mean Platelet Volume 11.1 fL (8.0-11.0); Platelet Count 258 x1000/uL (130-400); RBC 4.82 m/cumm (4.00-5.20); RBC Distribution Width 13.6 % (11.7-14.6); White Blood Cell Count 3.56 k/cumm (4.4-10.8)
[2018-10-19 13:56] LABS: ALT 27 U/L (14-59); AST 18 U/L (15-37); Albumin 3.8 g/dL (3.4-5.0); Alkaline Phosphatase 64 U/L (46-116); BUN 18 mg/dL (7-18); Bilirubin, Total 0.7 mg/dL (0.2-1.0); CREATININE 0.87 mg/dL (0.55-1.02); Calcium 8.9 mg/dL (8.5-10.1); Calculated LDL 112 mg/dL; Chloride 106 mmol/L (98-107); Cholesterol 198 mg/dL (50-200); Glucose 88 mg/dL (70-100); HDL Cholesterol 71 mg/dL (40-60); Potassium 4.5 mmol/L (3.5-5.1); Sodium 141 mmol/L (136-145); Total Protein 6.6 g/dL (6.4-8.2); Triglyceride 75 mg/dL (30-150)
== END 2018-10-19 09:40 ==
LOC: NCHCN 09:20
PROVIDERS: PCP Family Medicine; Visit Provider Family Medicine
DX: E78.5 Hyperlipidemia, unspecified (principal); E55.9 Vitamin D deficiency, unspecified; R42 Dizziness and giddiness
CPT/HCPCS: 80053; 80061; 85027

== ENCOUNTER 2018-10-20 02:47 | Outpatient (CLI) | payer MEDICARE, BC, SELFPAY ==
--- NOTE | 2018-10-20 10:18 | DI.MRI_ITS ---
SYMPTOM/DIAGNOSIS: LIGHTHEADEDNESS BRAIN MRI: 10/20 MRI examination of the brain was performed according to the usual protocol. There is moderate generalized cerebral atrophy and there are areas of abnormal signal seen on T2 and FLAIR weighted images and periventricular and subcortical white matter consistent with microvascular ischemic change and largely sparing the corpus callosum. No other significant signal abnormality identified in the brain. The temporal bone structures appear intact. Orbital structures appear intact. Pituitary is unremarkable. Normal flow void noted in the [place] vasculature. Susceptibility weighted imaging shows no evidence of intracranial hemorrhage. Diffusion weighted imaging shows no evidence of infarct. CONCLUSION: No evidence of acute intracranial process. Atrophy and white matter findings consistent with microvascular ischemic changes.
== END 2018-10-20 03:07 ==
PROVIDERS: PCP Family Medicine; Visit Provider Nurse Practitioner Family
DX: R42 Dizziness and giddiness (principal); G31.89 Other specified degenerative diseases of nervous system; R90.82 White matter disease, unspecified
CPT/HCPCS: 70551

== ENCOUNTER → 2018-11-16 08:16 | Outpatient (BNVA) | payer MEDICARE, BC, SELFPAY | PROVIDERS: PCP Family Medicine; Referring Provider Nurse Practitioner Family; Visit Provider Psychiatry & Neurology Neurology | DX: R42 Dizziness and giddiness (principal); J44.9 Chronic obstructive pulmonary disease, unspecified; Z87.891 Personal history of nicotine dependence | CPT/HCPCS: 99204; 99215 ==

== ENCOUNTER 2019-08-14 19:36 | Emergency (ER) | payer MEDICARE, BC, SELFPAY ==
[2019-08-14 19:43] VITALS: BP 145/78; PULSE 77; RESP 16; TEMP 36.7; O2SAT 98
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
== END 2019-08-14 21:30 | disposition home or self-care (01) ==
PROVIDERS: Emergency Provider Emergency Medicine; PCP Family Medicine
DX: S82.491A Other fracture of shaft of right fibula, initial encounter for closed fracture (principal); M25.551 Pain in right hip; M25.561 Pain in right knee; V03.10XA Pedestrian on foot injured in collision with car, pick-up truck or van in traffic accident, initial encounter; J44.9 Chronic obstructive pulmonary disease, unspecified; Z87.891 Personal history of nicotine dependence
CPT/HCPCS: 27786; 73552; 99284; 73590; 73630; 99282; E0114; L4361

== ENCOUNTER 2019-09-05 10:48 | Outpatient (CLI) | payer MEDICARE, BC, SELFPAY ==
--- NOTE | 2019-09-05 10:45 | DI.RAD_ITS ---
EXAM: XR ANKLE RT COMPLETE CLINICAL HISTORY: right ankle fracture. TECHNIQUE: 2D digital imaging was performed. COMPARISON: CR,XR XR FOOT RT COMPLETE from 08/14/2019 CR,XR XR TIB/FIB RT from 08/14/2019 FINDINGS: BONES: There is a nondisplaced transverse fracture through the lateral malleolus. There is a well co rticated osseous density at the tip of the lateral malleolus which appears old. JOINTS: The ankle mortise is normally aligned. SOFT TISSUE: Soft tissue swelling about the ankle laterally. IMPRESSION: Nondisplaced lateral malleolar fracture. DATA REPOSITORY: RADIATION DOSE DELIVERED:
== END 2019-09-05 11:08 ==
PROVIDERS: PCP Family Medicine; Referring Provider Student in an Organized Health Care Education/Training Program; Visit Provider Student in an Organized Health Care Education/Training Program
DX: S82.831A Other fracture of upper and lower end of right fibula, initial encounter for closed fracture; S83.411A Sprain of medial collateral ligament of right knee, initial encounter; V03.10XA Pedestrian on foot injured in collision with car, pick-up truck or van in traffic accident, initial encounter; S82.64XA Nondisplaced fracture of lateral malleolus of right fibula, initial encounter for closed fracture
CPT/HCPCS: 99203; 99214; 73610

== ENCOUNTER 2019-10-10 10:58 | Outpatient (CLI) | payer MEDICARE, BC, SELFPAY ==
--- NOTE | 2019-10-10 10:45 | DI.RAD_ITS ---
EXAM: XR ANKLE RT COMPLETE CLINICAL HISTORY: fu right ankle TECHNIQUE: COMPARISON: CR XR ANKLE RT COMPLETE from 09/05/2019 FINDINGS: Three views were obtained. Previously described fracture of the lateral malleolus is less easily see n than on the previous examination. No change in alignment seen. The ankle mortise appears well seun ntained. IMPRESSION: RADIATION DOSE DELIVERED: Total DLP
--- NOTE | 2019-10-10 11:00 | DI.RAD_ITS ---
EXAM: XR KNEE RT 3V AP,LAT,RANULFO CLINICAL HISTORY: knee pain since ankle injury TECHNIQUE: COMPARISON: No exams were available for comparison FINDINGS: Three views were obtained. There are minimal degenerative changes with slight marginal osteophyte fo rmation at multiple sites. No other bony or soft tissue abnormality seen. No evidence of acute frac ture. IMPRESSION: RADIATION DOSE DELIVERED: Total DLP
== END 2019-10-10 11:18 ==
PROVIDERS: PCP Family Medicine; Referring Provider Family Medicine; Visit Provider Student in an Organized Health Care Education/Training Program
DX: M25.561 Pain in right knee; S82.61XD Displaced fracture of lateral malleolus of right fibula, subsequent encounter for closed fracture with routine healing; V03.10XD Pedestrian on foot injured in collision with car, pick-up truck or van in traffic accident, subsequent encounter; J44.9 Chronic obstructive pulmonary disease, unspecified; Z87.891 Personal history of nicotine dependence
CPT/HCPCS: 73562; 99213; 73610

== ENCOUNTER → 2019-12-12 10:57 | Outpatient (BNVA) | payer MEDICARE, BC, SELFPAY | PROVIDERS: PCP Family Medicine; Referring Provider Family Medicine; Visit Provider Student in an Organized Health Care Education/Training Program | DX: S82.891A Other fracture of right lower leg, initial encounter for closed fracture (principal); M25.561 Pain in right knee; S83.411D Sprain of medial collateral ligament of right knee, subsequent encounter; S82.61XD Displaced fracture of lateral malleolus of right fibula, subsequent encounter for closed fracture with routine healing; V03.10XD Pedestrian on foot injured in collision with car, pick-up truck or van in traffic accident, subsequent encounter; J44.9 Chronic obstructive pulmonary disease, unspecified; Z87.891 Personal history of nicotine dependence | CPT/HCPCS: 99213 ==

== ENCOUNTER 2020-01-17 16:38 | Outpatient (REF) | payer MEDICARE, BC, SELFPAY ==
[2020-01-17 21:24] LABS: Abs Immature Grans 0.01 10^3/uL (0.0-0.06); Absolute Basophil Count 0.04 10^3/uL (0.0-0.2); Absolute Eosinophil Count 0.06 10^3/uL (0.0-0.7); Absolute Lymphocyte Count 1.15 10^3/uL (1.2-3.4); Absolute Monocyte Count 0.34 10^3/uL (0.1-0.8); Absolute Neutrophil Count 3.46 10^3/uL (1.2-6.7); Basophils % 0.8; Eosinophils % 1.2; HCT 44.3 % (36.0-46.0); HGB 14.4 g/dL (11.2-15.7); Immature Grans % 0.2; Lymphocytes % 22.7; MCH 30.3 pg (27.0-33.0); MCHC 32.5 % (32.0-36.0); MCV 93.1 fL (80-95); MPV 11.5 fL (8.0-11.0); Monocytes % 6.7; Neutrophils % 68.4; Nucleated RBC 0 %; Platelet Count 249 10^3/uL (130-400); RBC 4.76 10^6/uL (3.93-5.22); RDW 12.8 % (11.7-14.6); RDW-SD 43.8 fL; WBC 5.06 10^3/uL (4.4-10.8)
[2020-01-17 21:49] LABS: ALT 23 U/L (14-59); AST 21 U/L (15-37); Albumin 3.9 g/dL (3.4-5.0); Alkaline Phosphatase 68 U/L (46-116); BUN 22 mg/dL (7-18); Bilirubin, Total 0.5 mg/dL (0.2-1.0); CREATININE 0.98 mg/dL (0.55-1.02); Calcium 9.1 mg/dL (8.5-10.1); Chloride 107 mmol/L (98-107); Estimated GFR 54.47 (mL/min/1.73m2); Glucose 94 mg/dL (74-106); Potassium 4.7 mmol/L (3.5-5.1); Sodium 142 mmol/L (136-145); TSH (W/Ref FT4) 1.18 uIU/mL (0.36-3.74); Total Protein 6.7 g/dL (6.4-8.2)
== END 2020-01-17 16:58 ==
LOC: NCHCN 16:38
PROVIDERS: PCP Family Medicine; Visit Provider Family Medicine
DX: R68.83 Chills (without fever) (principal)
CPT/HCPCS: 80053; 84443; 85025

== ENCOUNTER 2020-02-26 15:12 | Outpatient (REF) | payer MEDICARE, BC, SELFPAY ==
[2020-02-27 16:31] LABS: COVID-19 RT-PCR UVMMC Result Negative (Negative)
== END 2020-02-26 15:32 ==
LOC: NCHCN 15:12
PROVIDERS: PCP Family Medicine; Visit Provider Family Medicine
DX: Z20.822 Contact with and (suspected) exposure to COVID-19 (principal)
CPT/HCPCS: U0003

== ENCOUNTER 2020-06-23 11:40 | Emergency (ER) | payer MEDICARE, BC, SELFPAY ==
--- NOTE | 2020-06-23 11:45 | DI.RAD_ITS ---
Exam(s) XR WRIST RT COMPLETE EXAM: XR WRIST RT COMPLETE CLINICAL HISTORY: Fall, Swelling, R/O Fracture. TECHNIQUE: 2D digital imaging was performed. COMPARISON: CR XR wrist RT complete from 02/07/2018 FINDINGS: There is no evidence of acute fracture nor carpal dislocation. Only mild degenerative changes. No s ignificant ulnar variance. Bone density is age-appropriate. IMPRESSION: DATA REPOSITORY: RADIATION DOSE DELIVERED:
[2020-06-23 11:51] VITALS: BP 135/81; PULSE 70; RESP 18; TEMP 36.5; O2SAT 96
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
== END 2020-06-23 13:00 | disposition home or self-care (01) ==
PROVIDERS: Emergency Provider Registered Nurse Emergency; PCP Family Medicine
DX: S63.591A Other specified sprain of right wrist, initial encounter (principal); S00.31XA Abrasion of nose, initial encounter; S00.511A Abrasion of lip, initial encounter; W01.0XXA Fall on same level from slipping, tripping and stumbling without subsequent striking against object, initial encounter
CPT/HCPCS: 29125; 99283; 73110

== ENCOUNTER 2020-08-25 12:38 | Outpatient (REF) | payer MEDICARE, BC, SELFPAY ==
[2020-08-27 14:12] LABS: COVID-19 RT-PCR UVMMC Result Negative (Negative)
== END 2020-08-25 12:39 | disposition home or self-care (01) ==
LOC: NCHCN 12:38
PROVIDERS: PCP Family Medicine; Visit Provider Family Medicine
DX: Z20.822 Contact with and (suspected) exposure to COVID-19 (principal)
CPT/HCPCS: U0003